=== PATIENT | female | born 1945 | race Caucasian/White ===

== ENCOUNTER 2017-01-16 14:08 | Emergency (ER) | payer OTHER ==
[2017-01-16 14:46] VITALS: BP 110/73
--- NOTE | 2017-01-16 15:52 | Diag Imaging Result Document ---
PROCEDURE NAME: HEAD/C-SPINE W/O CONTRAST - 01/16/2017 CT HEAD AND C-SPINE WITHOUT CONTRAST: COMPARISON: CT soft tissue neck dated 09/19/2012. No prior CT head is available for comparison. FINDINGS: HEAD: There is no discrete intracranial mass, mass effect, or intracranial hemorrhage. There is no evidence of acute infarct given the limited sensitivity of CT versus MRI. Surrounding soft tissues are grossly unremarkable. Calvaria is intact. C-SPINE: There is multilevel degenerative disk disease with loss of disk space height and marginal osteophyte formation, worse at and below C4-5. There is somewhat milder facet arthropathy at multiple levels. These changes are causing some degree of central canal and neural foraminal narrowing at several levels. This appears chronic. There is no evidence of fracture, subluxation, or intrinsic osseous lesion, otherwise. Surrounding soft tissues are essentially unremarkable. IMPRESSION: 1. No evidence of acute intracranial pathology. 2. Multilevel degenerative changes, but no evidence of fracture or other definite acute C-spine injury.
--- NOTE | 2017-01-16 15:53 | Diag Imaging Result Document ---
PROCEDURE NAME: FACIAL BONES W/O CONTRAST - 01/16/2017 CT FACIAL BONES WITHOUT CONTRAST: COMPARISON: None available. FINDINGS: There is no evidence of facial bone fracture. The mandible is normally located. The globes are intact. There is no evidence of retrobulbar hematoma. There is mild chronic appearing maxillary sinus mucosal thickening bilaterally. The mastoid air cells are clear. Otherwise, the surrounding soft tissues are essentially unremarkable by CT. IMPRESSION: No evidence of facial bone fracture.
--- NOTE | 2017-01-16 16:00 | Diag Imaging Result Document ---
PROCEDURE NAME: KNEE 3 VIEWS LEFT - 01/16/2017 PLAIN RADIOGRAPH THE LEFT KNEE 3 VIEWS: COMPARISON: None available. FINDINGS: There is a nondisplaced fracture traversing the patella horizontally. There is tricompartmental degenerative change that is severe at the medial compartment where there is loss of joint space height and marginal osteophyte formation. There is also mild chondrocalcinosis at the medial joint compartment. There is suggestion of a small effusion in the suprapatellar bursa. IMPRESSION: Nondisplaced patellar fracture as described.
[2017-01-16] MEDS ORDERED: DIPHTHERIA/TETANUS ADULT IM ONE (16:10)
--- NOTE | 2017-01-16 16:11 | Diag Imaging Result Document ---
PROCEDURE NAME: ELBOW COMPLETE RIGHT - 01/16/2017 PLAIN RADIOGRAPH OF THE RIGHT ELBOW, 3 VIEWS: COMPARISON: None available. FINDINGS: There is no discrete fracture, dislocation, or intrinsic osseous lesion. The visualized joint spaces are essentially unremarkable. The surrounding soft tissues are grossly unremarkable. IMPRESSION: No evidence of acute osseous abnormality.
--- NOTE | 2017-01-16 16:12 | Diag Imaging Result Document ---
PROCEDURE NAME: CHEST-1 VIEW - 01/16/2017 SINGLE FRONTAL RADIOGRAPH OF THE CHEST: COMPARISON: 11/26/2016. FINDINGS: The lungs are grossly clear. There is no discrete pleural fluid collection or pneumothorax. The cardiomediastinal silhouette and upper airway are grossly unremarkable. IMPRESSION: No evidence of acute chest pathology.
--- NOTE | 2017-01-16 16:13 | Diag Imaging Result Document ---
PROCEDURE NAME: PELVIS - 01/16/2017 SINGLE FRONTAL RADIOGRAPH OF THE PELVIS: COMPARISON: None available. FINDINGS: There is no discrete fracture, dislocation, or intrinsic osseous lesion. The visualized joint spaces are essentially unremarkable. The surrounding soft tissues are grossly unremarkable. IMPRESSION: No evidence of acute osseous abnormality.
--- NOTE | 2017-01-16 16:13 | Diag Imaging Result Document ---
PROCEDURE NAME: WRIST COMPLETE LEFT - 01/16/2017 PLAIN RADIOGRAPH OF THE LEFT WRIST, 3 VIEWS: COMPARISON: None available. FINDINGS: There is no discrete fracture, dislocation, or intrinsic osseous lesion. The visualized joint spaces are essentially unremarkable. The surrounding soft tissues are grossly unremarkable. IMPRESSION: No evidence of acute osseous abnormality.
--- NOTE | 2017-01-16 16:14 | Diag Imaging Result Document ---
PROCEDURE NAME: WRIST COMPLETE RIGHT - 01/16/2017 PLAIN RADIOGRAPH OF THE RIGHT WRIST 3 VIEWS: COMPARISON: None available. FINDINGS: There is a nondisplaced fracture involving the radial styloid. This appears acute. There is a questionable linear lucency traversing the midportion of the scaphoid on only 1 image. Although this is more questionable, a nondisplaced scaphoid fracture is possible. There is chronic fragmentation at the ulnar styloid. There are degenerative changes at the distal pole of the scaphoid. IMPRESSION: 1. Acute nondisplaced fracture of the radial styloid. 2. More questionable nondisplaced fracture of the scaphoid.
--- NOTE | 2017-01-16 16:23 | PROVIDER DOCUMENTATION ---
[id number] - General Chief Complaint: Fall Stated Complaint: FALL, NOSEBLEED Time Seen by Provider: 01/16/17 14:23 Source: patient Allergies/Adverse Reactions: Patient Allergies Allergy/AdvReac Type Severity Reaction Status Date / Time prochlorperazine edisylate * Allergy Intermediate tongue Verified 01/16/17 14:46 [From Compazine] swelling prochlorperazine maleate * Allergy Intermediate tongue Verified 01/16/17 14:46 [From Compazine] swelling Home Medications: Home Medication List Medication Instructions Recorded Confirmed Last Taken Type Levothyroxine [Synthroid] 75 microgm PO DAILY 03/11/13 01/16/17 01/15/17 History Escitalopram [Lexapro] 10 mg PO DAILY 11/26/16 01/16/17 01/15/17 History Meloxicam 7.5 mg pe PO DAILY 11/26/16 01/16/17 01/15/17 History Review of Systems - Adult - REVIEW OF SYSTEMS - ADULT Constitutional: reports: no symptoms reported Eyes: reports: no symptoms reported Ears, Nose, Mouth & Throat: reports: see HPI Cardiovascular: reports: no symptoms reported Respiratory: reports: no symptoms reported Gastrointestinal: reports: no symptoms reported Genitourinary: reports: no symptoms reported Musculoskeletal: reports: see HPI, joint pain Neurological: reports: see HPI (tingling in hands) Psychiatric: reports: no symptoms reported Endocrine: reports: no symptoms reported Hematologic/Lymphatic: reports: no symptoms reported Past History - Adult - PAST MEDICAL HISTORY-ADULT Review of Records: reports: Nursing Assessment Review, Medications Reviewed Major Childhood Illnesses: reports: denies history Cardiovascular: reports: denies history Respiratory: reports: denies history Gastrointestinal: reports: denies history Obstetrical/Gynecological: reports: denies history Genitourinary: reports: denies history Musculoskeletal: reports: arthritis Neurological: reports: denies history Psychiatric: reports: depression Endocrine/Immune: reports: thyroid disorder Other Conditions: reports: denies history - PRIOR SURGERIES/PROCEDURES Surgical/Procedure History: reports: cholecystectomy, hysterectomy, tonsillectomy, joint replacement - PRIOR HOSPITALIZATIONS Prior Hospitalizations: reports: for other non-related - IMMUNIZATION STATUS Childhood Immunizations: See Nurse Assessment Flu Vaccine: See Nurse Assessment - FAMILY HISTORY Family History: reviewed, not pertinent Physical Exam-Injury Related - Physical Exam-Injury Related Initial Vital Signs Reviewed: Yes General Appearance: alert, mild distress Immobilization?: C-collar, applied in ED Eyes: PERRL/EOMI, fundi clear, no AV nicking Head, Ears, Nose, Mouth & Throat: TMs normal, other (abrasions on nose and upper lip. 3 cm contusion midline fore head. Blood on lips, superficial 1/2 cm lacerations inner upper and lower lip- not through and through, no loose teeth L upper incisior with old decay changes. maxilla tender without motion or crepitus) Neck: normal inspection, tender lateral (mid neck- mild) Respiratory: chest non-tender, lungs clear, normal breath sounds Cardiovascular: regular rate, rhythm, no edema, no gallop Peripheral Pulses: radial (R): 2+, radial (L): 2+ Abdominal Exam: normal bowel sounds, non tender, soft, no organomegaly Back Exam: normal inspection, no CVA tenderness, no vertebral tenderness Extremity: tenderness (R wrist, without deformity, distal NV intact, R elbow L patella) Neurologic: no motor/sensory deficits (but pt complains of tingling in hands) Psych/Mental Status: normal mood/affect, normal thought content, oriented x 3 Progress - PLAN OF CARE/RESULTS Progress/Plan/Lab Results: Orders Category Date Time Status Knee Immobilizer .left Care 01/16/17 16:09 Active Wrist Splint DIRECTED Care 01/16/17 16:15 Active CHEST-1 VIEW [RAD] Stat Exams 01/16/17 14:23 Draft ELBOW COMPLETE RIGHT [RAD] Stat Exams 01/16/17 14:28 Draft FACIAL BONES W/O CONTRAST [CT] Stat Exams 01/16/17 14:23 Draft HEAD/C-SPINE W/O CONTRAST [CT] Stat Exams 01/16/17 14:23 Draft KNEE 3 VIEWS LEFT [RAD] Stat Exams 01/16/17 14:28 Draft PELVIS [RAD] Stat Exams 01/16/17 14:23 Draft WRIST COMPLETE LEFT [RAD] Routine Exams 01/16/17 15:05 Draft WRIST COMPLETE RIGHT [RAD] Stat Exams 01/16/17 14:28 Draft Diphtheria/Tetanus Adult Med 01/16/17 16:10 Discontinued 0.5 ml IM .ONCE ONE Vital Signs Temp Pulse Resp BP Pulse Ox 01/16/17 14:34 97.4 F L 59 L 18 110/73 99 prochlorperazine edisylate * [From Compazine] Allergy (Intermediate, Verified 14:46) tongue swelling prochlorperazine maleate * [From Compazine] Allergy (Intermediate, Verified 14:46) tongue swelling Levothyroxine [Synthroid] 75 microgm PO DAILY 03/11/13 Escitalopram [Lexapro] 10 mg PO DAILY 11/26/16 Meloxicam 7.5 mg pe PO DAILY 11/26/16 - XRAY 1 XRAY Study: Chest (normal) 2 XRAY: Right Impression: Abnormal (styloid fx and scaphoid waist, nondisplaced fx) 3 XRAY: Left XRAY Study: Knee Impression: Abnormal (transverse nondisplaced patella fx) 4 XRAY Study: Pelvis (no fx) - CT/MRI 1 CT Study: Head (no intracranial abnormalities, DJD but no c spine fx), Neck Departure - Departure Time of Disposition Order: 16:18 DIAGNOSIS: Scaphoid fracture, wrist, closed Head injury Qualifiers: Encounter type: initial encounter Qualified Code(s): S09.90XA - Unspecified injury of head, initial encounter Abrasion of lip Qualifiers: Encounter type: initial encounter Qualified Code(s): S00.511A - Abrasion of lip , initial encounter Patella fracture Qualifiers: Encounter type: initial encounter Fracture type: closed Fracture morphology: transverse Laterality: left Radial styloid fracture Qualifiers: Encounter type: initial encounter Fracture type: closed Laterality: right Disposition: HOME 01 Certified Medical Emergency: Emergent Condition: Good Additional Instructions: Recommend rest, head injury precautions. You need to wear the wrist splint at all times and wear your knee splint when you are standing or up. Use tylenol for discomfort. do regular mouth rinses with salt water. You need to see your dentist this week and You need to see your orthopedic doctor this week for follow up on your L knee cap fracture and your R wrist fracture. Return to the emergency department if worsening headache or arm numbness or vomiting ED Follow Up Instructions: You have been treated by a care provider in the Emergency Department. These instructions are being provided to you so you can have an understanding of how to care for yourself upon discharge. Upon discharge from the Emergency Department, you are responsible for making arrangements for follow-up care by a physician of your choice. Take all prescribed medications as directed. Return to the Emergency Department immediately for any new or worsening symptoms. You may call the Physician Referral phone number at [phone] to obtain a list of Physicians who are taking new patients. Referrals: Irvin Burns MD [Primary Care Provider] - Instructions: Head Injury, Adult, [id number], Abrasion, [id number], Radial Head Fracture, [id number], Scaphoid Fracture, Wrist, Patellar Fracture, Adult
== END 2017-01-16 17:22 | disposition home or self-care (01) ==
LOC: EDBD → ED 14:08
DX: S82.035A Nondisplaced transverse fracture of left patella, initial encounter for closed fracture (principal); S52.514A Nondisplaced fracture of right radial styloid process, initial encounter for closed fracture; S09.90XA Unspecified injury of head, initial encounter; S00.511A Abrasion of lip, initial encounter; S00.31XA Abrasion of nose, initial encounter; S00.83XA Contusion of other part of head, initial encounter; S01.511A Laceration without foreign body of lip, initial encounter; M54.2 Cervicalgia; Z79.899 Other long term (current) drug therapy; R20.2 Paresthesia of skin; W19.XXXA Unspecified fall, initial encounter; M19.90 Unspecified osteoarthritis, unspecified site; E07.9 Disorder of thyroid, unspecified; F32.9 Major depressive disorder, single episode, unspecified; Z79.1 Long term (current) use of non-steroidal anti-inflammatories (NSAID); Z23 Encounter for immunization
CPT/HCPCS: 70450; 70486; 71010; 72125; 72170; 90714